=== PATIENT | female | born 1980 | race Two or more races ===

== ENCOUNTER → 2020-10-15 | Outpatient (CLI) | payer OTHER ==
[2020-10-18 09:20] LABS: Hepatitis B Surface Antibody Negative
[2020-10-18 13:32] LABS: Hepatitis B Surface Antigen Negative (Negative)
== END | disposition home or self-care (01) ==
LOC: LAB 17:47
PROVIDERS: ATTEND Nurse Practitioner Family
DX: T14.90XA Injury, unspecified, initial encounter (principal); W46.0XXA Contact with hypodermic needle, initial encounter; Y93.89 Activity, other specified; Y92.89 Other specified places as the place of occurrence of the external cause; Y99.8 Other external cause status
CPT/HCPCS: 36415; 86703; 86706; 86803; 87340

== ENCOUNTER → 2020-11-22 | Outpatient (CLI) | payer OTHER ==
[2020-11-22 09:58] LABS: Hepatitis B Surface Antibody Negative
[2020-11-22 11:10] LABS: Hepatitis B Surface Antigen Negative (Negative)
== END | disposition home or self-care (01) ==
LOC: LAB 08:54
PROVIDERS: ATTEND Nurse Practitioner
DX: Z77.21 Contact with and (suspected) exposure to potentially hazardous body fluids (principal)
CPT/HCPCS: 36415; 86703; 86706; 86803; 87340